=== PATIENT | male | born 1975 | race Caucasian/White ===

== ENCOUNTER 2017-07-22 13:43 | Observation (INO) | payer OTHER ==
[~2017-07-22] VITALS: Ht 190.5 cm; Wt 116.8 kg
[2017-07-22] MEDS ORDERED: SODIUM CHLORIDE FLUSH 10ML SYR IVF ONE (14:30)
[2017-07-22] MEDS ORDERED: LEVO112T2 PO (14:31)
[2017-07-22] MEDS ORDERED: LEVO100T PO (14:31)
[2017-07-22 14:56] LABS: BASOPHILS # (AUTO) 0.12 x10^3/uL (0-0.1); BASOPHILS % (AUTO) 1 % (0-1); EOSINOPHILS # (AUTO) 0.14 x10^3/uL (0-0.4); EOSINOPHILS % (AUTO) 2 % (1-7); LYMPHOCYTES # (AUTO) 2.31 x10^3/uL (1-3.4); LYMPHOCYTES % (AUTO) 25 % (22-44); MD NO; MEAN CORPUSCULAR HEMOGLOBIN 28.7 pg (27.5-34.5); MEAN CORPUSCULAR HGB CONC 33.1 g/dL (33.2-36.2); MEAN CORPUSCULAR VOLUME 86.5 fL (81-97); MEAN PLATELET VOLUME 9.6 fL (7.4-10.4); MONOCYTES # (AUTO) 0.58 x10^3/uL (0.2-0.8); MONOCYTES % (AUTO) 6 % (2-9); NEUTROPHILS # (AUTO) 6.16 x10^3/uL (1.8-6.8); NEUTROPHILS % (AUTO) 66 % (42-75); PLATELET COUNT 278 x10^3/uL (130-400); RED BLOOD COUNT 5.86 x10^6/uL (4.38-5.82); RED CELL DISTRIBUTION WIDTH 13.9 % (9.4-14.8)
[2017-07-22 14:59] LABS: ALBUMIN 4.3 g/dL (3.4-5.0); ANION GAP 8 mmol/L (5-15); CALCIUM 8.7 mg/dL (8.5-10.1); CHLORIDE 108 mmol/L (98-107); CREATININE 1.09 mg/dL (0.7-1.3)
[2017-07-22 15:03] LABS: TROPONIN I < 0.015 ng/mL (0.000-0.045)
[2017-07-22 15:09] LABS: FREE T4 (FREE THYROXINE) 0.98 ng/dL (0.76-1.46)
[2017-07-22] MEDS ORDERED: OMNIPAQUE 350 MG/ML, 100ML BOTTLE ONE (15:46)
[2017-07-22] MEDS ORDERED: ENOXAPARIN 40 MG/0.4 ML SQ SCH (17:30)
[2017-07-22] MEDS ORDERED: BISACODYL 10 MG SUPP PR PRN (17:30)
[2017-07-22] MEDS ORDERED: TEMAZEPAM 15 MG CAPSULE PO PRN (17:30)
[2017-07-22] MEDS ORDERED: ACETAMINOPHEN 325 MG TABLET PO PRN (17:30)
[2017-07-22] MEDS ORDERED: ONDANSETRON 2MG/ML, 2ML IVPush PRN (17:30)
[2017-07-22] MEDS ORDERED: ACETAMINOPHEN 325 MG TABLET ONE (17:39)
[2017-07-22 18:21] VITALS: BP 168/114
[2017-07-22] MEDS ORDERED: FAMOTIDINE 20 MG TABLET ONE (20:00)
[2017-07-22] MEDS: FAMOTIDINE 20 MG TABLET PO SCH (20:02)
[2017-07-22] MEDS: SODIUM CHLORIDE FLUSH 10ML SYR IVF SCH (20:03)
[2017-07-22 20:54] VITALS: BP 134/88
[2017-07-22] MEDS ORDERED: KETOROLAC 30 MG/1 ML IVPush ONE (21:00)
[2017-07-22 21:08] LABS: TROPONIN I < 0.015 ng/mL (0.000-0.045)
[2017-07-22] MEDS: morphine SULFATE 10 MG/ML, 1ML IVPush PRN (22:20)
[2017-07-23 02:42] LABS: BASOPHILS # (AUTO) 0.11 x10^3/uL (0-0.1); BASOPHILS % (AUTO) 1 % (0-1); EOSINOPHILS # (AUTO) 0.17 x10^3/uL (0-0.4); EOSINOPHILS % (AUTO) 2 % (1-7); LYMPHOCYTES # (AUTO) 2.97 x10^3/uL (1-3.4); LYMPHOCYTES % (AUTO) 30 % (22-44); MD NO; MEAN CORPUSCULAR HEMOGLOBIN 28.7 pg (27.5-34.5); MEAN CORPUSCULAR HGB CONC 33.2 g/dL (33.2-36.2); MEAN CORPUSCULAR VOLUME 86.4 fL (81-97); MEAN PLATELET VOLUME 9.2 fL (7.4-10.4); MONOCYTES # (AUTO) 0.58 x10^3/uL (0.2-0.8); MONOCYTES % (AUTO) 6 % (2-9); NEUTROPHILS # (AUTO) 5.96 x10^3/uL (1.8-6.8); NEUTROPHILS % (AUTO) 61 % (42-75); PLATELET COUNT 245 x10^3/uL (130-400); RED CELL DISTRIBUTION WIDTH 13.6 % (9.4-14.8)
[2017-07-23 02:55] LABS: ALBUMIN 3.6 g/dL (3.4-5.0); ANION GAP 7 mmol/L (5-15); CALCIUM 8.4 mg/dL (8.5-10.1); CHLORIDE 107 mmol/L (98-107)
[2017-07-23 02:59] LABS: ALANINE AMINOTRANSFERASE 26 U/L (12-78); ALKALINE PHOSPHATASE 72 U/L (45-117); BILIRUBIN,TOTAL 0.3 mg/dL (0.2-1.0); CHOLESTEROL, TOTAL 145 mg/dL (140-239); CREATININE 1.24 mg/dL (0.7-1.3); HDL CHOLESTEROL (DIRECT) 32 mg/dL (40-60); TOTAL PROTEIN 6.9 g/dL (6.4-8.2); TRIGLYCERIDES 156 mg/dL (50-200); VLDL CHOLESTEROL 31 mg/dL (0-25)
[2017-07-23 03:00] LABS: CHOL/HDL RATIO 4.5; HDL CHOL % 22 % (26-37); LDL CHOLESTEROL,CALCULATED 82 mg/dL (54-169); LDL/HDL RATIO 2.6 (0.5-3.0)
[2017-07-23 03:01] LABS: TROPONIN I < 0.015 ng/mL (0.000-0.045)
[2017-07-23 03:54] VITALS: BP 115/75
[2017-07-23] MEDS: morphine SULFATE 10 MG/ML, 1ML IVPush PRN ×2 (04:35→10:42)
[2017-07-23 06:48] VITALS: BP 127/86
[2017-07-23] MEDS ORDERED: REGADENOSON 0.4 MG/5 ML SYRINGE ONE ×3 (07:58→11:32)
[2017-07-23] MEDS: SODIUM CHLORIDE FLUSH 10ML SYR IVF SCH (08:49)
[2017-07-23] MEDS: FAMOTIDINE 20 MG TABLET PO SCH (08:49)
[2017-07-23] MEDS ORDERED: LEVOTHYROXINE 112 MCG TABLET PO SCH (09:00)
[2017-07-23 10:47] LABS: TROPONIN I < 0.015 ng/mL (0.000-0.045)
[2017-07-23] MEDS ORDERED: AMINOPHYLLINE 25 MG/ML, 10ML ONE (12:54)
[2017-07-23 13:09] VITALS: BP 155/77
[2017-07-23] MEDS ORDERED: HYDROcodone/APAP 5/325 TABLET PO PRN (14:30)
[2017-07-24] MEDS ORDERED: LEVOTHYROXINE 100 MCG TABLET PO SCH (09:00)
== END 2017-07-24 15:53 | disposition home or self-care (01) ==
LOC: ED 16:35 → INTOOBSV 16:36 → EDIP 16:36 → ED 17:40 → 5SO 18:10 → DCLOUNGE 07-23 16:54 → 3NE 07-24 07:23
PROVIDERS: ADMIT Hospitalist; ATTEND Hospitalist
DX: R07.9 Chest pain, unspecified (principal); E03.9 Hypothyroidism, unspecified; G89.29 Other chronic pain; M25.571 Pain in right ankle and joints of right foot
CPT/HCPCS: 36415; 71275; 78452; 80048; 80053; 80061; 82040; 83735; 83880; 84100; 84439; 84443; 84484; 85025; 93005; 93017; 93306; 96374; 96375; 96376; 99285; A9502; C9898; G0378; J0280; J1885; J2270; J2785; Q9967

== ENCOUNTER → 2018-05-14 | Outpatient (CLI) | payer OTHER ==
[~2018-05-14] MED LIST: LEVO100T PO; LEVO112T2 PO
== END | disposition home or self-care (01) ==
LOC: RAD 08:48
PROVIDERS: ATTEND Internal Medicine Endocrinology, Diabetes & Metabolism
DX: E04.2 Nontoxic multinodular goiter (principal); Z98.890 Other specified postprocedural states; Z79.899 Other long term (current) drug therapy
CPT/HCPCS: 10022; 76942; 88173